=== PATIENT | male | born 1970 | race Caucasian/White ===

== ENCOUNTER 2018-05-05 07:50 | Emergency (ER) ==
[2018-05-05 07:58] VITALS: BP 149/66; TEMP 99.1; BMI 29.9
--- NOTE | 2018-05-05 09:11 | CT ---
EXAM: CT of the chest without contrast History: Cough. Comparison: CT abdomen pelvis 05/05/2018 Technique: Multiplanar CT images through the thorax were obtained without the administration of IV c ontrast Findings: Heart size is normal. Trace anterior pericardial fluid. No thoracic aortic aneurysm. No pathologically enlarged thoracic lymph nodes. Evaluation for hilar lymph nodes is limited due to la ck of contrast administration. Diffuse bronchial wall thickening. Scattered and tree in bud opaciti es are seen bilaterally. No consolidated pneumonia. No pleural fluid and no pneumothorax. For details in the upper abdomen, please see dedicated CT abdomen pelvis done on the same day. No ac [place] osseous abnormalities. Impression: Diffuse bronchial wall thickening and scattered tree-in-bud opacities most compatible wit h infectious/inflammatory process such as bronchitis and bronchiolitis. There is no consolidated pne umonia.
--- NOTE | 2018-05-05 09:14 | CT ---
EXAM: CT of the abdomen pelvis without contrast History: Fever and vomiting. Comparison: Chest CT 05/05/2018 Technique: Multiplanar CT images through the abdomen pelvis were obtained without the administration of IV contrast Findings: Subsegmental atelectasis seen within the lower lungs. No acute osseous abnormalities. No gallstones identified by CT. No focal liver or splenic lesions. No peripancreatic inflammation. Adrenal glands are unremarkable. No renal stones and no hydronephrosis. 2.3 cm simple left renal c yst. No ureteral calculi. The appendix is not dilated or inflamed. No bowel obstruction. No bladd er wall thickening. Prostate is not enlarged. No perirectal inflammation. No free air and no ascit es. No inflammatory stranding. Impression: 1. No acute intra-abdominal or pelvic process. 2. Small simple left renal cyst
--- NOTE | 2018-05-05 09:58 | ED.PDOC ---
General ED Provider: Dr. MINDI WALTON Chief Complaint: Fever Stated Complaint: flu like symptoms Time Seen by Physician: 08:00 Mode of Arrival: Walk-In Information Source: Patient Exam Limitations: No limitations Primary Care Provider: YAYO WALTER Nursing and Triage Documentation Reviewed and Agree: Yes Does patient meet sepsis criteria?: No System Inflammatory Response Syndrome: Not Applicable Sepsis Protocol: For patient's 13 years and over: Temp is 96.8 and below OR 101 and greater Pulse >90 BPM Resp >20/minute Acutely Altered Mental Status Are patient's symptoms suggestive of a new infection, such as: -Pneumonia -Skin, Soft Tissue -Endocarditis -UTI -Bone, Joint Infection -Implantable Device -Acute Abdominal Infection -Wound Infection -Meningitis -Blood Stream Catheter Infection -Unknown Respiratory Complaint Exam - Respiratory Complaint/Exam Symptoms Are: Still present Timing: Intermittent Initial Severity: Mild Current Severity: None Location: Nose, Throat, Chest Character: Reports: Non-productive cough, Dry cough Aggravating: Reports: URI Alleviating: Reports: Spontaneous resolution Associated Signs and Symptoms: Reports: Fever, Chills, URI, Nasal congestion, Vomiting. Denies: Rapid breathing, Dyspnea, Chest pain, Pleuritic chest pain, Wheezing, Hemoptysis, Dizziness, Calf pain, Calf swelling, Edema, Hoarseness, Sinus discomfort, Sore throat, Weight loss, Decreased oral intake, Increased thirst, Increased appetite, Increased urination Related History: Reports: Similar episode History of Healthcare-Acquired Pneumonia: No Related Surgical History: Reports: None Pulmonary Embolism Risk Factors: None Cardiac Risk Factors: Reports: None Pseudomonas Risk Factors: Reports: None Status Asthmaticus Risk Factors: Reports: None Home Oxygen Use: No Recent Stress Test: No Recent Echo/LV Function: No Current Antibiotic Use: No Current Asthma Medication Use: No Respiratory Distress: None Inadequate Respiratory Effort: No Dysphagia Present: No Stridor Present: No JVD Present: No Accessory Muscle Use: No Retractions: Not Present Diminished Breath Sounds: No Grunting Respirations: No Kussmaul Respirations: No Differential Diagnoses: Pneumonia, Bronchitis, Influenza Review of Systems - Review Of Systems Constitutional: Reports: Chills, Fever, Loss of appetite Eyes: Reports: No symptoms Ears, Nose, Mouth, Throat: Reports: No symptoms Respiratory: Reports: Cough Cardiac: Reports: No symptoms GI: Reports: Vomiting : Reports: No symptoms Musculoskeletal: Reports: No symptoms Skin: Reports: No symptoms Neurological: Reports: No symptoms Endocrine: Reports: No symptoms Hematologic/Lymphatic: Reports: No symptoms All Other Systems: Reviewed and Negative Past Medical History - Past Medical History Previously Healthy: Yes Endocrine: Reports: None Cardiovascular: Reports: None Respiratory: Reports: None Hematological: Reports: None Gastrointestinal: Reports: None Genitourinary: Reports: None Neuro/Psych: Reports: None Musculoskeletal: Reports: None Cancer: Reports: None - Surgical History General Surgical History: Reports: None - Family History Family History: Reports: None - Social History Smoking Status: Never smoker Hx Substance Use: Yes ([facility]) Alcohol Screening: None - Immunizations Tetanus Shot up to Date: No Physical Exam - Physical Exam Appearance: Well-appearing, No pain distress, Well-nourished Eyes: GABO, EOMI, Conjunctiva clear ENT: Ears normal, Nose normal, Oropharynx normal Respiratory: Airway patent, Breath sounds clear, Breath sounds equal, Respirations nonlabored Cardiovascular: RRR, Pulses normal, No rub, No murmur GI/: Soft, Nontender, No masses, Bowel sounds normal, No Organomegaly Musculoskeletal: Normal strength, ROM intact, No edema, No calf tenderness Skin: Warm, Dry, Normal color Neurological: Sensation intact, Motor intact, Reflexes intact, Cranial nerves intact, Alert, Oriented Psychiatric: Affect appropriate, Mood appropriate Interpretation - Radiology Interpretation Radiology Interpretation By: Radiologist Radiology Results: No acute changes Exam Interpreted: CT Scan Critical Care Note - Critical Care Note Total Time (mins): 0 Course - Course Hematology/Chemistry: 05/05/18 08:25 05/05/18 08:25 Orders, Labs, Meds: Lab Review 05/05/18 05/05/18 05/05/18 08:25 08:25 08:25 WBC 5.77 RBC 4.97 Hgb 15.0 Hct 44.1 MCV 88.7 MCH 30.2 MCHC 34.0 RDW Coeff of Bree 12.7 Plt Count 193 Immature Gran % (Auto) 0.2 Neut % (Auto) 75.2 Lymph % (Auto) 15.3 Haakon % (Auto) 9.0 Eos % (Auto) 0.0 Baso % (Auto) 0.3 Immature Gran # (Auto) 0.0 Neut # (Auto) 4.3 Lymph # (Auto) 0.9 Haakon # (Auto) 0.5 Eos # (Auto) 0.0 Baso # (Auto) 0.0 Sodium 140.4 Potassium 3.36 L Chloride 98.4 Carbon Dioxide 28.0 Anion Gap 17.36 BUN 12.0 Creatinine 1.10 Estimated GFR (MDRD) 71.00 BUN/Creatinine Ratio 10.90 Glucose 95.8 Calcium 9.00 Total Bilirubin 0.61 AST 32.4 ALT 18.1 Alkaline Phosphatase 96.8 Total Protein 8.58 H Albumin 4.59 Globulin 3.99 Albumin/Globulin Ratio 1.15 Influ A Molecular Assay Positive by naat H Influ B Molecular Assay Negative by naat Orders Category Date Time Status CBC W/ AUTO DIFF Stat LAB 05/05/18 08:25 Completed COMPREHENSIVE METABOLIC PANEL Stat LAB 05/05/18 08:25 Completed FLU A/B MOLECULAR Stat LAB 05/05/18 08:25 Completed MOLECULAR GROUP A STREP Stat LAB 05/05/18 08:[address] ABDOMEN/PELVIS WO CONTRAST Stat RADS 05/05/18 08:[address] CHEST W/O CONTRAST Stat RADS 05/05/18 08:21 Completed Vital Signs: Temp Pulse Resp BP Pulse Ox 05/05/18 07:53 99.1 F 108 H 20 149/66 H 96 Departure - Departure Time of Disposition: 09:57 Disposition: HOME SELF-CARE Discharge Problem: Influenza A Instructions: Influenza (ED) Condition: Good Pt referred to PMD for follow-up: Yes IPMP verified?: No Additional Instructions: Please call your Family Physician as soon as possible to schedule a follow-up appointment. Allergies/Adverse Reactions: Allergies No Known Allergies Allergy (Unverified 05/05/18 08:00) Home Medications: Ambulatory Orders 1 [No Reported Medications] 05/05/18
== END 2018-05-05 10:15 | disposition home or self-care (01) ==
LOC: ED 07:50
DX: J11.1 Influenza due to unidentified influenza virus with other respiratory manifestations (principal)
CPT/HCPCS: 36415; 80053; 85025; 87502; 87651; 99283